=== PATIENT | male | born 1985 | race Caucasian/White ===

== ENCOUNTER 2017-06-26 05:54 | Day surgery (SDC) | payer SELFPAY ==
[2017-06-26] MEDS ORDERED: ONDANSETRON 4 MG/2 ML VIAL IVP STA (06:08)
[2017-06-26] MEDS ORDERED: SODIUM CHLORIDE 0.9% 1,000 ML IV ONE (06:08)
[2017-06-26] MEDS ORDERED: IOPAMIDOL-300 100 ML VIAL ONE (06:22)
--- NOTE | 2017-06-26 06:24 | ED Physician Documentation ---
PD HPI ABD PAIN - Stated complaint Stated Complaint: ABD PAIN/VOMITING - Chief complaint Chief Complaint: Abd Pain - History obtained from History obtained from: Patient - History of Present Illness Timing - onset: Today Timing - details: Abrupt onset Quality: Cramping, Sharp Location: RLQ Associated symptoms: Nausea, Vomiting, Diarrhea. No: Fever Similar symptoms before: Has not had sx before Recently seen: Not recently seen - Additional information Additional information: Patient is a 31 year old male with no significant past medical history who is presenting to the emergency department for abdominal pain. patient states that last night he developed severe right sided lower abdominal pain. Patient thought it might have been tacos he ate and he made himself throw up. patient also proceeded to have an episode of diarrhea but the pain persisted and was more severe than he has had before. patient stated it was worse when he pushed on it. Review of Systems Constitutional: denies: Fever, Chills Ears: denies: Ear pain Throat: reports: Reviewed and negative Cardiac: reports: Reviewed and negative Respiratory: reports: Reviewed and negative GI: reports: Abdominal Pain, Nausea, Vomiting, Diarrhea : reports: Reviewed and negative Skin: denies: Rash, Lesions Musculoskeletal: reports: Reviewed and negative Neurologic: reports: Reviewed and negative PD PAST MEDICAL HISTORY - Past Medical History Past Medical History: No Cardiovascular: Arrhythmia Respiratory: None Neuro: None Endocrine/Autoimmune: None GI: None : None HEENT: None Psych: None Musculoskeletal: None Derm: None - Past Surgical History Past Surgical History: No - Present Medications Home Medications: Ambulatory Orders Medication Instructions Recorded Confirmed Fexofenadine HCl [Marylu Allergy] 180 mg PO DAILY PRN 06/26/17 06/26/17 - Allergies Allergies/Adverse Reactions: Allergies Allergy/AdvReac Type Severity Reaction Status Date / Time No Known Drug Allergies Allergy Verified 06/26/17 06:05 - Social History Does the pt smoke?: Yes Smoking Status: Current every day smoker Does the pt drink ETOH?: Yes Does the pt have substance abuse?: Yes Substance Use and Type: Marijuana - Immunizations Immunizations are current?: Yes - POLST Patient has POLST: No PD ED PE NORMAL - Vitals Vital signs reviewed: Yes - General General: Alert and oriented X 3, No acute distress - HEENT HEENT: Atraumatic, PERRL - Cardiac Cardiac: RRR - Respiratory Respiratory: No respiratory distress - Derm Derm: Normal color, No rash - Extremities Extremities: No deformity - Neuro Neuro: Alert and oriented X 3, No motor deficit, No sensory deficit Eye Opening: Spontaneous Motor: Obeys Commands Verbal: Oriented GCS Score: 15 PD ED PE EXPANDED - Abdomen Abdomen: Tender to palpation, Rebound, RLQ Results - Vitals Vitals: Vital Signs - 24 hr 06/26/17 06/26/17 06/26/17 06:00 08:04 10:38 Temperature 36.1 C L 36.4 C L Heart Rate 67 71 68 Respiratory 16 16 12 Rate Blood Pressure 102/75 117/68 123/69 Blood Pressure [Left Brachial artery] O2 Saturation 91 L 98 98 06/26/17 06/26/17 06/26/17 11:10 11:59 12:53 Temperature 37.1 C 37.1 C Heart Rate 64 64 Respiratory 14 14 Rate Blood Pressure 115/71 115/71 Blood Pressure [Left Brachial artery] O2 Saturation 99 99 100 06/26/17 06/26/17 06/26/17 12:55 13:00 13:05 Temperature Heart Rate Respiratory Rate Blood Pressure Blood Pressure [Left Brachial artery] O2 Saturation 100 100 100 06/26/17 06/26/17 06/26/17 13:10 13:15 13:20 Temperature Heart Rate Respiratory Rate Blood Pressure Blood Pressure [Left Brachial artery] O2 Saturation 100 100 100 06/26/17 06/26/17 06/26/17 13:25 13:30 13:38 Temperature 36.6 C Heart Rate 80 Respiratory 16 Rate Blood Pressure Blood Pressure 124/80 [Left Brachial artery] O2 Saturation 100 100 99 06/26/17 06/26/17 06/26/17 14:00 14:30 15:45 Temperature 37.2 C 37.1 C Heart Rate 74 70 80 Respiratory 14 16 16 Rate Blood Pressure Blood Pressure 113/64 120/74 119/66 [Left Brachial artery] O2 Saturation 95 98 97 06/26/17 15:57 Temperature 37 C Heart Rate 82 Respiratory 16 Rate Blood Pressure Blood Pressure 120/62 [Left Brachial artery] O2 Saturation 97 Oxygen O2 Source Room air - Labs Labs: Laboratory Tests 06/26/17 06/26/17 06:25 06:25 WBC 16.6 H RBC 5.57 Hgb 16.4 Hct 49.1 MCV 88.2 MCH 29.5 MCHC 33.4 RDW 13.3 Plt Count 201 MPV 7.9 Neut # 14.0 H Lymph # 1.1 L Upson # 1.3 H Eos # 0.1 Baso # 0.0 Absolute Nucleated RBC 0.01 Nucleated RBC % 0.0 Sodium 137 Potassium 3.2 L Chloride 101 Carbon Dioxide 25 Anion Gap 11.0 BUN 15 Creatinine 0.9 Estimated GFR (MDRD) 98 Glucose 108 H Calcium 9.0 Total Bilirubin 1.1 H AST 27 ALT 34 Alkaline Phosphatase 43 Total Protein 7.3 Albumin 4.7 Globulin 2.6 Albumin/Globulin Ratio 1.8 Lipase 17 L - Rads (name of study) ct abd pelvis Radiology: Final report received (findings consistent with acute appendicitis) PD MEDICAL DECISION MAKING - ED course Complexity details: reviewed old records, reviewed results, re-evaluated patient , considered differential, d/w patient ED course: Patient was seen and examined at bedside. patient had rlq tenderness and rebound tenderness. IV access was gained. Patient was treated with IV fluids and zofran. Imaging was ordered. When patient returned the results were reviewed. Patient was found to have acute appendicitis. Patient was treated with zosyn and Dr. Agudelo was contacted. he stated he would come to the emergency department to evaluate the patient. Departure - Departure Disposition: ED Transfer to [facility] Clinical Impression: Appendicitis Condition: Stable Discharge Date/Time: 06/26/17 11:15
[2017-06-26] MEDS ORDERED: IOPAMIDOL-300 100 ML VIAL IVP ONE (06:35)
[2017-06-26 06:59] LABS: BASOPHILS % (AUTO) 0.3 %; EOSINOPHILS # (AUTO) 0.1 10^3/uL (0.0-0.7); EOSINOPHILS % (AUTO) 0.7 %; HGB - HEMOGLOBIN 16.4 g/dL (14.0-18.0); LYMPHOCYTES # (AUTO) 1.1 10^3/uL (1.5-3.5); LYMPHOCYTES % (AUTO) 6.8 %; MEAN CORPUSCULAR HEMOGLOBIN 29.5 pg (27.0-31.0); MEAN CORPUSCULAR HGB CONC 33.4 g/dL (32.0-36.0); MEAN CORPUSCULAR VOLUME 88.2 fL (80.0-94.0); MEAN PLATELET VOLUME 7.9 fL (7.4-11.4); MONOCYTES # (AUTO) 1.3 10^3/uL (0.0-1.0); MONOCYTES % (AUTO) 7.8 %; NEUTROPHILS % (AUTO) 84.4 %; PLT - PLATELET COUNT 201 10^3/uL (130-450); RED BLOOD COUNT 5.57 10^6/uL (4.70-6.10); RED CELL DISTRIBUTION WIDTH 13.3 % (12.0-15.0); WHITE BLOOD COUNT 16.6 x10^3/uL (4.8-10.8)
[2017-06-26 07:02] LABS: ALBUMIN 4.7 g/dL (3.2-5.5); ALBUMIN/GLOBULIN RATIO 1.8 (1.0-2.2); BILIRUBIN,TOTAL 1.1 mg/dL (0.2-1.0); CREATININE 0.9 mg/dL (0.6-1.2); TOTAL PROTEIN 7.3 g/dL (6.7-8.2)
--- NOTE | 2017-06-26 07:09 | CT Report ---
EXAM: CT ABDOMEN AND PELVIS EXAM DATE: 06/26/2017 06:40 AM. CLINICAL HISTORY: Rlq pain, rebound. COMPARISONS: None. TECHNIQUE: Routine helical CT imaging was performed through the abdomen and pelvis. IV contrast: 100M L ISOVUE 300. Enteric contrast: Yes. Reconstructions: Coronal and sagittal. In accordance with CT protocol optimization, one or more of the following dose reduction techniques w ere utilized for this exam: automated exposure control, adjustment of mA and/or KV based on patient s ize, or use of iterative reconstructive technique. FINDINGS: Lung Bases: Unremarkable. Liver: Normal contour. No masses. Gallbladder/Bile Ducts: Unremarkable. Spleen: Normal. Pancreas: Normal. Adrenal Glands: Normal. Kidneys: Normal. No masses or hydronephrosis. Peritoneal Cavity/Bowel: Normal. No free fluid, free air or adenopathy. No masses or acute inflammato ry process. The basis fluid-filled and measures 7 mm in diameter, with enhancement of the wall. There is minimal periappendiceal fat stranding. No fluid collection. No evidence of perforation. Pelvic Organs: the visualized pelvic organs are within normal limits. The bladder is decompressed an d therefore not evaluated. Vasculature: No aneurysms or other significant abnormality. Bones: No bone lesions. IMPRESSION: Findings are suggestive of acute appendicitis. Recommend surgical consultation. [facility] Referring Provider Line: [phone] SITE ID: [id number]
[2017-06-26] MEDS ORDERED: PIPERACILLIN/TAZOBACTAM 3.375 GM in SODIUM CHLORIDE 0.9% MINIBAG 100 ML IV STA (07:12)
[2017-06-26] MEDS ORDERED: BUPIVACAINE 0.5% PF 10 ML VIAL ONE ×2 (11:09→11:10)
[2017-06-26] MEDS ORDERED: LACTATED RINGERS 1,000 ML IV ONE ×2 (11:37→12:45)
--- NOTE | 2017-06-26 11:52 | SURGERY HX AND PHYSICAL(T) ---
Surgical History & Physical - Chief Complaint/HPI Chief Complaint: Right lower quadrant pain <24 hours with nausea and vomiting - PMH/PSH/Social Hx Does the pt have a hx of MRSA?: No Neurological History: None Eyes, Ears, Nose, Throat: None Cardiovascular: Arrhythmia Respiratory: None Skin: None Endocrine/Autoimmune: None Gastrointestinal: None Urinary: None Musculoskeletal: None Blood Disorders: None Psychiatric: None Smoking Status: Current every day smoker Does the pt drink ETOH?: Yes Frequency: Occasional Does the pt have substance abuse?: Yes Substance Use and Type: Marijuana - Home Meds and Allergies Home Medications: Fexofenadine HCl [Marylu Allergy] 180 mg PO DAILY PRN 06/26/17 Allergies/Adverse Reactions: Allergies Allergy/AdvReac Type Severity Reaction Status Date / Time No Known Drug Allergies Allergy Verified 06/26/17 06:05 - Review of Systems Constitutional: No: Fatigue, Fever, Chills, Weakness HEENT: No: Headaches, Eye pain Skin: No: Cyanosis, Jaundice, Mottled, Pallor, Diaphoresis Cardiac: No: AFIB, CAD, CHF, HTN Respiratory: No: Shortness of breath Gastrointestinal: Nausea, Vomiting, Abdominal pain (McBurney's point), Diarrhea (One episode). No: Difficulty swallowing Gentinourinary: No: Dysuria Neurological: No: Dizziness, Headache, Numbness Musculoskeletal: No: Muscle pain, Back pain Hematologic: No: Anemia Psychiatric: No: Depression, Anxiety Endocrinologic: No: Sweating, Cold or heat intolerances, Polyuria - Vital Signs Heart Rate: 64 Blood Pressure: 115/71 Temperature: 37.1 C Respiratory Rate: 14 O2 Saturation: 99 Weight (kg): 81.647 kg Height: 1.8 m - Patient Review Patient Review: Problems were reviewed with the patient during this visit. Medications were reviewed with the patient during this visit. Allergies were reviewed this patient during this visit. Pertinent Tests Reviewed: All pertitent test for this patient were reviewed. - Assessment & Plan Assessment and Plan: Physical exam: HEENT: Normocephalic, atraumatic, anicteric, mucous membranes pink and moist Neck: Supple without mass or bruit Cardiac: Regular rate and rhythm without rub murmur or gallop Chest: Clear to auscultation bilaterally Abdomen: Point of maximal tenderness at McBurney's point, decreased bowel sounds , no hepatomegaly no splenomegaly Rectal: Deferred : Deferred Extremities: Calves nontender, appearance normal Gait: Not evaluated Neuro: Alert and oriented to person place and time, mood and affect appear appropriate, asks and answers questions appropriately Assessment: Acute appendicitis Plan: Laparoscopic appendectomy, possible open appendectomy. The indications, procedure, alternatives including no surgery, possible risks including infection (deep or superficial), bleeding requiring transfusion (with all of its risks), and were fully explained to the patient and all questions answered. I also explained the pathophysiology. I explained that following the surgery I did not want him lifting anything over 15 pounds for 6 weeks to allow for optimal healing and to decrease the likelihood that a hernia would occur. All questions were fully answered. Verbal and written consent was obtained. The patient, in preparation for surgery will be nothing by mouth, and receive 3.375 g of Zosyn with induction. I asked him to contact me with any surgical questions and his concerns and he stated that he would. I asked him to let me know if there is any way we can make his stay at [facility] more comfortable and he stated that he would let me know. The plan is to do this operation as an outpatient procedure and to discharge him home following the procedure. 45 minutes of [id number] time spent with the patient, over 80% in discussion and coordination of his care
[2017-06-26] MEDS ORDERED: fentaNYL 100 MCG/2 ML VIAL IVP ONE (12:15)
[2017-06-26] MEDS ORDERED: PROPOFOL 200 MG/20 ML VIAL IVP ONE (12:15)
[2017-06-26] MEDS ORDERED: LIDOCAINE-MPF 2% 5 ML VIAL IM ONE (12:15)
[2017-06-26] MEDS ORDERED: KETOROLAC 30 MG/ML VIAL IVP ONE (12:15)
[2017-06-26] MEDS ORDERED: ONDANSETRON 4 MG/2 ML VIAL IVP ONE (12:15)
[2017-06-26] MEDS ORDERED: NEOSTIGMINE 1 MG/1 ML 10 ML MDV IVP ONE (12:15)
[2017-06-26] MEDS ORDERED: ROCURONIUM 50 MG/5 ML VIAL IVP ONE (12:15)
[2017-06-26] MEDS ORDERED: ACETAMINOPHEN 1,000 MG/100 ML 100 ML IV ONE (12:15)
[2017-06-26] MEDS ORDERED: SUCCINYLCHOLINE 200 MG/10 ML VIAL IVP ONE (12:15)
[2017-06-26] MEDS ORDERED: GLYCOPYRROLATE 1 MG/5 ML VIAL IVP ONE (12:15)
[2017-06-26] MEDS ORDERED: DEXAMETHASONE 4 MG/ML VIAL IVP ONE (12:15)
[2017-06-26] MEDS ORDERED: MIDAZOLAM 2 MG/2 ML VIAL IVP ONE (12:15)
[2017-06-26] MEDS ORDERED: BUPIVACAINE 0.5% PF 30 ML VIAL SUBQ ONE (12:43)
--- NOTE | 2017-06-26 12:55 | OPERATIVE REPORT ---
Operative Report - General Procedure Date: 06/26/17 Planned Procedure: Laparoscopic appendectomy Pre-Op Diagnosis: Acute appendicitis Procedure Performed: Laparoscopic appendectomy and umbilical herniorrhaphy Post Op Diagnosis: Acute nonperforated appendicitis and umbilical hernia - Procedure Note Primary Surgeon: Jaguar Cid MD Anesthesia Provider: Janusz Ahmadi CRNA Anesthesia Technique: General ET tube, Local (20 mL of half percent Marcaine) IV Fluids (mL): 1,000 Estimated Blood Loss (mL): 10 Complications: None. - Other Other Information/Narrative: OPERATIVE DESCRIPTION/REPORT: After verbal and written informed consent was obtained detailing the risks of infection, bleeding requiring transfusion with its risks, and , and after I met with the patient confirming the surgery and the site of the surgery, the patient was brought to the operative suite and placed supine on the operating table. Great care was taken to avoid pressure points to prevent pressure necrosis or nerve injury. Monitoring devices were applied along with TEDs and pneumatic compressive stockings (to prevent DVT). The patient received preoperative antibiotics for surgical prophylaxis. Janusz Ahmadi sedated and anethetized the patient for the entire procedure. The patient was prepped and draped in the usual sterile manner. With the patient draped my initials were clearly visible. A "time in" then confirmed that the patient was identified with 3 identifiers (name, birthdate and medical record number), the history and physical was in the chart, the signed consent confirming the procedure was in the chart, the patient was in the correct position, the aforementioned prophylactic measures were in place or given, we had the correct personnel and equipment to complete the procedure and that anesthesia, surgery and nursing were given an opportunuty to express any concerns. With the agreement of everyone in the room, we proceeded with the operation. A 2 cm umbilical midline incision was made. The fascia was then cleared of subcutaneous tissue using a tonsil clamp. An umbilical hernia was noted and the peritoneum was incised sharply.The umbilical hernia allowed entry into the abdominal cavity without incident. A 12 mm blunt tipped balloon tipped Robson port was placed into the abdomen and the balloon inflated to keep it in place. The pneumoperitoneum was then established using carbon dioxide insufflation to a steady state pressure of 12 mmHg. Two additional 5 mm ports were placed in the midline above and below the umbilicus. The patient was then rotated slightly to their left and slightly head down ( Trendelenberg). The appendix was clearly identified and noted to be thickened and clearly consistent with acute appendicitis. It was a simple matter to grasp the end of the appendix and lift it revealing the base of the appendix where it was draining into the cecum. The base of the appendix and mesentery were then stapled and transected using a laparoscopic vascular stapler. Visualization of the staple line revealed absolutely no bleeding or leak of bowel contents. The appendix was then place into an endopouch for the remainder of the case. The patient was then rotated to lie flat. The fascia and skin were then injected with the 20 cc of % marcaine for pain control. The insufflation was released and the ports removed. The fascial defect was then approximated using 2 0-Vicryl [id number] sutures thus repairing the umbilical hernia. The skin incisions were approximated with 4-0 Monocryl in a subcuticular fashion. The surgical prep was removed, the skin was prepped with benzoin and steristrips were applied. A dressing was applied. At this point a time out was performed that confirmed that all the counts were correct, the procedure that was performed, the blood loss, the IV fluids administered, and the patients condition. Having tolerated the procedure well , the patient was subsequently extubated and taken to recovery room in good and stable condition.
[2017-06-26] MEDS: HYDROmorphone 1 MG/ML SYRINGE ONE ×3 (13:15→13:26)
[2017-06-26] MEDS ORDERED: ONDANSETRON 4 MG/2 ML VIAL ONE (13:49)
[2017-06-26] MEDS ORDERED: oxyCOD/ACETAMIN 5 MG/325 MG TABLET PO ONE (14:36)
[2017-06-26 15:59] VITALS: BP 120/62
== END 2017-06-26 09:16 | disposition home or self-care (01) ==
LOC: ED 05:54 → SDS 09:15
PROVIDERS: ATTEND Surgery
PROC: 0DTJ4ZZ Resection of Appendix, Percutaneous Endoscopic Approach (ICD-10-PCS; principal; 2017-06-26 11:30)
DX: K35.80 Unspecified acute appendicitis (principal); K42.9 Umbilical hernia without obstruction or gangrene; F17.200 Nicotine dependence, unspecified, uncomplicated
CPT/HCPCS: 36415; 44970; 74177; 80053; 83690; 85025; 96365; 96375; 99283; 99284; A9270; J0131; J1170; J7120; Q9967